=== PATIENT | female | born 1970 | race American Indian/Alaskan Native ===

== ENCOUNTER 2020-02-24 11:32 | Emergency (ER) | payer OTHER ==
[2020-02-24 13:15] VITALS: BP 146/88
[2020-02-24] MEDS ORDERED: IBUPROFEN 800 MG TAB PO ONE (13:26)
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
== END 2020-02-24 14:56 | disposition home or self-care (01) ==
LOC: ED 11:32
DX: S13.4XXA Sprain of ligaments of cervical spine, initial encounter (principal); Z79.899 Other long term (current) drug therapy; Z90.49 Acquired absence of other specified parts of digestive tract; V49.49XA Driver injured in collision with other motor vehicles in traffic accident, initial encounter; Y93.89 Activity, other specified; Y92.488 Other paved roadways as the place of occurrence of the external cause; Y99.8 Other external cause status
CPT/HCPCS: 72040; 99283

== ENCOUNTER 2022-04-08 09:18 | Emergency (ER) | payer SELFPAY ==
--- NOTE | 2022-04-08 10:09 | XRay Report ---
CHEST 2 VIEWS INDICATION / CLINICAL INFORMATION: Chest Pain. COMPARISON: None available. FINDINGS: SUPPORT DEVICES: None. HEART / MEDIASTINUM: No significant abnormality. LUNGS / PLEURA: No significant pulmonary or pleural abnormality. No pneumothorax. ADDITIONAL FINDINGS: No significant additional findings. IMPRESSION: 1. No acute findings. Signer Name: Justo Balderrama MD Signed: 04/08/2022 10:05 AM Workstation Name: [employer]
[2022-04-08 12:24] LABS: INR 0.92 (0.87-1.13)
[2022-04-08 12:25] LABS: Partial Thromboplastin Time 33.1 Sec. (24.2-36.6)
[2022-04-08 12:34] LABS: Alanine Aminotransferase 38 units/L (7-56); Albumin 4.3 g/dL (3.9-5); BUN/Creatinine Ratio 15; Blood Urea Nitrogen 12 mg/dL (7-17); Calcium 9.3 mg/dL (8.4-10.2); Hemolysis Index 34
[2022-04-08] MEDS ORDERED: dexAMETHasone 4 MG/ML VIAL IM ONE (12:39)
[2022-04-08] MEDS ORDERED: KETOROLAC 10 MG TAB PO ONE (12:39)
[2022-04-08] MEDS ORDERED: diphenhydrAMINE 25 MG/10 ML ORAL LIQUID PO ONE (12:39)
[2022-04-08] MEDS ORDERED: METOCLOPRAMIDE 10 MG TAB PO ONE (12:39)
[2022-04-08 13:01] LABS: Basophils % (Auto) 1.1 % (0.0-1.8); Eosinophils # (Auto) 0.1 K/mm3 (0.0-0.4); Eosinophils % (Auto) 3.1 % (0.0-4.3); Hematocrit 41.2 % (30.3-42.9); Hemoglobin 12.9 gm/dl (10.1-14.3); Lymphocytes # (Auto) 2.3 K/mm3 (1.2-5.4); Lymphocytes % (Auto) 49.3 % (13.4-35.0); Mean Corpuscular HGB Conc 31 % (30-34); Mean Corpuscular Volume 82 fl (79-97); Monocytes # (Auto) 0.3 K/mm3 (0.0-0.8); Monocytes % (Auto) 7.4 % (0.0-7.3); Platelet Count 206 K/mm3 (140-440); Red Blood Count 5.02 M/mm3 (3.65-5.03)
--- NOTE | 2022-04-08 14:13 | Emergency Department Report ---
ED Chest Pain HPI - General Chief Complaint: Chest Pain Stated Complaint: CHEST PAIN/HEADACHES Time Seen by Provider: 04/08/22 12:19 Source: patient Mode of arrival: Ambulatory Limitations: No Limitations - History of Present Illness Initial Comments: 51-year-old black female with a past medical history of GERD presents to the emergency department for evaluation of 2-month history of headache, 1 month history of occasional chest tightness, and 2-month history of blurred vision. She states that she takes Tylenol intermittently for headache which improves it but it keeps coming back. She states that chest tightness is to the left side and not associated with any shortness of breath, nausea, vomiting, dizziness, or diaphoresis. Patient also denies photophobia and vision changes. She states that pain at its worst is 7 out of 10. Chest tightness is worse with palpation. MD Complaint: chest pain -: Gradual, month(s) (1) Onset: during rest Pain Location: left chest Pain Radiation: none Severity: moderate Severity scale (0 -10): 7 Quality: tightness Consistency: intermittent re: denies: nausea, vomting, diaphoresis, dyspnea, sense of impending doom Other Symptoms: denies: cough, fever, syncope, rash, leg swelling, palpitations, burping Treatments Prior to Arrival: none Aspirin use within the Past 7 Days: (0) No - Related Data On Oral Contraceptives: No Previous Rx's Medication Instructions Recorded Last Taken Type Cyclobenzaprine [Flexeril] 10 mg PO QHS PRN #10 tablet 02/24/20 Unknown Rx Naproxen 500 mg PO Q12H PRN #20 tablet 02/24/20 Unknown Rx Butalb/Acetaminophen/Caffeine 1 cap PO Q6HR PRN #12 cap 04/08/22 Unknown Rx [Fioricet 50-300-40 mg CAP] Allergies Allergy/AdvReac Type Severity Reaction Status Date / Time No Known Allergies Allergy Unverified 04/08/22 09:36 Heart Score - HEART Score History: Slightly suspicious EKG: Normal Age: 45-65 Risk factors: 1-2 risk factors Troponin: < normal limit HEART Score: 2 - EKG Read Time Time EKG Completed: 10:45 EKG Read Time: 10:50 - Critical Actions Critical Actions: 0-3 pts:0.9-1.7%risk of adverse cardiac event.Candidate for discharge ED Review of Systems ROS: Stated complaint: CHEST PAIN/HEADACHES Other details as noted in HPI Comment: All other systems reviewed and negative Constitutional: denies: chills, fever, malaise, weakness Eyes: vision change. denies: eye pain, eye discharge ENT: denies: hearing loss, congestion Respiratory: denies: cough, orthopnea, shortness of breath, SOB with exertion, SOB at rest, stridor, wheezing Cardiovascular: chest pain. denies: palpitations, dyspnea on exertion, orthopnea, edema, syncope, paroxysmal nocturnal dyspnea Gastrointestinal: denies: abdominal pain, nausea, vomiting, diarrhea, hematemesis, melena, hematochezia Genitourinary: denies: urgency, dysuria, frequency, hematuria, discharge, abnormal menses Musculoskeletal: denies: back pain Skin: denies: rash, lesions Neurological: headache. denies: weakness, numbness, paresthesias, confusion, abnormal gait, vertigo ED Past Medical Hx - Surgical History Hx Appendectomy: Yes Additional Surgical History: partial hysterectomy - Social History Smoking Status: Unknown if ever smoked Substance Use Type: None - Medications Home Medications: Home Medications Medication Instructions Recorded Confirmed Last Taken Type Cyclobenzaprine [Flexeril] 10 mg PO QHS PRN #10 tablet 02/24/20 Unknown Rx Naproxen 500 mg PO Q12H PRN #20 tablet 02/24/20 Unknown Rx Butalb/Acetaminophen/Caffeine 1 cap PO Q6HR PRN #12 cap 04/08/22 Unknown Rx [Fioricet 50-300-40 mg CAP] ED Physical Exam - General Limitations: No Limitations General appearance: alert, in no apparent distress - Head Head exam: Present: atraumatic, normocephalic - Eye Eye exam: Present: normal appearance. Absent: scleral icterus, conjunctival injection, periorbital swelling, periorbital tenderness - ENT ENT exam: Present: normal exam - Neck Neck exam: Present: normal inspection, full ROM. Absent: tenderness, lymphadenopathy - Respiratory Respiratory exam: Present: normal lung sounds bilaterally, chest wall tenderness. Absent: respiratory distress, wheezes, rales, rhonchi, stridor - Cardiovascular Cardiovascular Exam: Present: regular rate, normal heart sounds - GI/Abdominal GI/Abdominal exam: Present: soft, normal bowel sounds. Absent: distended, tenderness, guarding, rebound, rigid - Extremities Exam Extremities exam: Present: normal inspection, full ROM, normal capillary refill. Absent: tenderness, pedal edema, joint swelling, calf tenderness - Back Exam Back exam: Present: normal inspection. Absent: CVA tenderness (R), CVA tenderness (L), vertebral tenderness - Neurological Exam Neurological exam: Present: alert, oriented X3, CN II-XII intact, normal gait, reflexes normal. Absent: motor sensory deficit - Expanded Neurological Exam Expanded Patient oriented to: Present: person, place, time Speech: Present: fluid speech Cranial nerves: EOM's Intact: Normal, Gag Reflex: Normal, Tongue Deviation: Normal, Nystagmus: Normal, Facial Sensation: Normal Ataxia: Absent: yes Sensory exam: Upper Extremity Light Touch: Normal, Upper Extremity Temperature: Normal, Lower Extremity Light Touch: Normal, Lower Extremity Temperature: Normal Motor strength exam: RUE: 5, LUE: 5, RLE: 5, LLE: 5 Best Eye Response (Mary): (4) open spontaneously Best Motor Response (Crete): (6) obeys commands Best Verbal Response (Crete): (5) oriented [place] Total: 15 - Psychiatric Psychiatric exam: Present: normal affect, normal mood - Skin Skin exam: Present: warm, dry, intact, normal color ED Course Vital Signs 04/08/22 09:30 Temperature 98.5 F Pulse Rate 90 Respiratory 18 Rate Blood Pressure 136/90 [Right] O2 Sat by Pulse 100 Oximetry - Reevaluation(s) Reevaluation #1: 04/08/22 14:10 Headache and chest pain completely resolved. GARRETT score - Garrett Score Age > 65: (0) No Aspirin use within the Past 7 Days: (0) No 3 or more CAD Risk Factors: (0) No 2 or more Angina events in past 24 hrs: (1) Yes Known CAD with more than 50% Stenosis: (0) No Elevated Cardiac Markers: (0) No ST Deviation Greater than 0.5mm: (0) No GARRETT Score: 1 ED Medical Decision Making - Lab Data Result diagrams: 04/08/22 11:52 04/08/22 11:44 - EKG Data EKG shows normal: sinus rhythm Rate: normal - EKG Data Interpretation: no acute changes - Radiology Data Radiology results: report reviewed, image reviewed Chest x-ray: FINDINGS: SUPPORT DEVICES: None. HEART / MEDIASTINUM: No significant abnormality. LUNGS / PLEURA: No significant pulmonary or pleural abnormality. No pneumothorax. ADDITIONAL FINDINGS: No significant additional findings. IMPRESSION: 1. No acute findings. - Medical Decision Making 51-year-old black female with a past medical history of GERD presents to the emergency department for evaluation of 2-month history of headache, 1 month history of occasional chest tightness, and 2-month history of blurred vision. She states that she takes Tylenol intermittently for headache which improves it but it keeps coming back. She states that chest tightness is to the left side and not associated with any shortness of breath, nausea, vomiting, dizziness, or diaphoresis. Patient also denies photophobia and vision changes. She states that pain at its worst is 7 out of 10. Chest tightness is worse with palpation. Physical exam unremarkable except for chest wall tenderness. EKG without any acute ischemic changes noted, troponin within normal limits, chest x-ray within normal limits, and chest pain resolved after medications. Headache resolved after medication. Low suspicion for ACS. Patient be discharged home with Fioricet to use as needed for headache and advised to follow-up with cardiology or her primary care provider for further evaluation and management. She is advised to return to the emergency department for any concerning symptoms. She verbalizes understanding of and agreement with plan of care. Critical care attestation.: If time is entered above; I have spent that time in minutes in the direct care of this critically ill patient, excluding procedure time. ED Disposition Clinical Impression: Chest pain Qualifiers: Chest pain type: unspecified Qualified Code(s): R07.9 - Chest pain, unspecified Headache Qualifiers: Headache type: unspecified Headache chronicity pattern: acute headache Intractability: not intractable Qualified Code(s): R51.9 - Headache, unspecified Disposition: 01 HOME / SELF CARE / HOMELESS Is pt being admited?: No Does the pt Need Aspirin: No Condition: Stable Instructions: Chest Wall Pain, [id number], Nonspecific Chest Pain, Adult, [id number], General Headache Without Cause, [id number] Additional Instructions: Take medication as prescribed. Follow-up with primary care provider or cardiology for further evaluation and management. Return to the emergency department as needed. Prescriptions: Butalb/Acetaminophen/Caffeine [Fioricet 50-300-40 mg CAP] 1 cap PO Q6HR PRN #12 cap PRN Reason: Headache Referrals: GILMAR LEWIS MD [Staff Physician] - 3-5 Days DUYEN VIDALES MD [Staff Physician] - 3-5 Days Forms: Work/School Release Form(ED) Time of Disposition: 14:13 ED Headache HPI - General Chief Complaint: Chest Pain Stated Complaint: CHEST PAIN/HEADACHES Time Seen by Provider: 04/08/22 12:19 - History of Present Illness Timing/Duration: other (Intermittent over the last 2 months) Quality: moderate, achy Head Injury Location: frontal Associated Symptoms: vision changes. denies: fatigue, facial pain, fever/chills, flushing, loss of consciousness, nausea/vomiting, nasal congestion, nasal drainage, numbness in legs/feet, rash, seizures, sinus infection, stiff neck, weakness Allergies/Adverse Reactions: Allergies No Known Allergies Allergy (Unverified 04/08/22 09:36) Home Medications: Ambulatory Orders Cyclobenzaprine [Flexeril] 10 mg PO QHS PRN #10 tablet 02/24/20 Naproxen 500 mg PO Q12H PRN #20 tablet 02/24/20 Butalb/Acetaminophen/Caffeine [Fioricet 50-300-40 mg CAP] 1 cap PO Q6HR PRN #12 cap 04/08/22
[2022-04-08 14:49] VITALS: BP 141/57
--- NOTE | 2022-04-10 14:37 | Electrocardiograph Report ---
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
== END 2022-04-08 14:48 | disposition home or self-care (01) ==
LOC: ED 09:18
DX: R07.9 Chest pain, unspecified (principal); R51.9 Headache, unspecified; Z90.89 Acquired absence of other organs
CPT/HCPCS: 36415; 71046; 80053; 84484; 85025; 85610; 85730; 93005; 96372; 99284; J1100; Q0163